=== PATIENT | female | born 1995 | race Caucasian/White ===

== ENCOUNTER 2017-05-19 09:04 | Emergency (ER) | payer BC, OTHER ==
[2017-05-19 09:22] VITALS: BP 113/62
--- NOTE | 2017-05-19 09:40 | UC ---
Complaint Female HPI - HPI Summary HPI Summary: She has a hx of frequent yeast infections and pyelonephritis. She does not have a urologist. 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 She has one sexual partner and denies any pelvic pain with intercourse. She is low risk for STD. Her complaint is dysuria. - History Of Current Complaint Chief Complaint: [facility]CGU Stated Complaint: URINARY COMPLAINT Time Seen by Provider: 05/19/17 09:05 Hx Obtained From: Patient Hx Last Menstrual Period: IUD ?: No Onset/Duration: Gradual Onset Timing: Lasting Days Severity Initially: Mild Severity Currently: Mild Character: Dull Aggravating Factor(s): Urination Associated Signs And Symptoms: Positive: Negative - Allergies/Home Medications Allergies/Adverse Reactions: Allergies Allergy/AdvReac Type Severity Reaction Status Date / Time Amoxicillin Allergy Hives Verified 05/19/17 09:15 Cephalosporins Allergy Hives Verified 05/19/17 09:15 Shellfish Allergy Allergy Hives Verified 05/19/17 09:15 Home Medications: Home Medications Levonorgestrel (Iud) [Mirena IUD] 05/19/17 [History] PMH/Surg Hx/FS Hx/Imm Hx Previously Healthy: No - prior pyelonephritis. - Surgical History Surgical History: Yes Surgery Procedure, Year, and Place: TONSILS/ADENOIDS. SPOT REMOVED FROM NOSE. WISDOM TEETH - Family History Known Family History: Positive: None - Social History Occupation: Employed Full-time Alcohol Use: Weekly Alcohol Amount: weekends Substance Use Type: None Smoking Status (MU): Never Smoked Tobacco - Immunization History Most Recent Influenza Vaccination: 2015 Most Recent Tetanus Shot: UTD Most Recent Pneumonia Vaccination: N/A Review of Systems Genitourinary: Dysuria All Other Systems Reviewed And Are Negative: Yes Physical Exam Triage Information Reviewed: Yes Appearance: Well-Appearing, No Pain Distress, Well-Nourished Vital Signs: Initial Vital Signs Temp 98.3 F 05/19/17 09:16 Pulse 89 05/19/17 09:16 Resp 16 05/19/17 09:16 BP 113/62 05/19/17 09:16 Pulse Ox 100 05/19/17 09:16 Vital Signs Reviewed: Yes Eye Exam: Normal ENT Exam: Normal Neck exam: Normal Neck: Positive: Supple, Nontender, No Lymphadenopathy Respiratory Exam: Normal Cardiovascular Exam: Normal Abdomen Description: Positive: CVA Tenderness (L). Negative: Guarding Neurological Exam: Normal Psychological Exam: Normal Skin Exam: Normal Complaint Female Dx - Course Course Of Treatment: She states this feels very similar to prior infections. She is low risk for STD/PID. She had a pelvic exam recently and is refusing a repeat today despite my suggesting otherwise. She does agree to f/u with urology for further workup. We have considered PID, STD, yeast infection, kidney stone, pyelonephritis, sepsis, ovarian pathology but ua does not show blood that would suggest stone and there is no vomiting, fever, tachycardia or guarding. 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 U culture to be added. diflucan for yeast infection and f/ u with urology. start antibiotics if urine culture comes back positive. - Differential Dx/Diagnosis Provider Diagnoses: possible uti. yeast vaginitis. Discharge - Discharge Plan Condition: Good Disposition: HOME Prescriptions: Fluconazole 100 MG TAB* [Diflucan 100 MG TAB*] 100 mg PO DAILY #3 tab Sulfamethox/Trimethoprim DS* [Bactrim DS 800/160 TAB*] 1 tab PO BID #14 tab
== END 2017-05-19 09:55 | disposition home or self-care (01) ==
LOC: UCCORT 09:04
DX: B37.3 Candidiasis of vulva and vagina (principal); Z97.5 Presence of (intrauterine) contraceptive device; Z88.3 Allergy status to other anti-infective agents; Z91.013 Allergy to seafood
CPT/HCPCS: 81003; 87086; 99202; G0463